=== PATIENT | female | born 1940 | race Caucasian/White ===

== ENCOUNTER 2018-01-22 15:05 | Outpatient (CLI) | payer MEDICARE, OTHER | END 2018-01-22 15:06 | disposition home or self-care (01) | LOC: BICMAMMO 15:05 | PROVIDERS: ATTEND Obstetrics & Gynecology | DX: Z12.31 Encounter for screening mammogram for malignant neoplasm of breast (principal) | CPT/HCPCS: 77063; 77067 ==

== ENCOUNTER 2019-06-18 14:21 | Outpatient (CLI) | payer MEDICARE, OTHER ==
--- NOTE | 2019-06-18 16:26 | MMO ---
Left Breast MAMMO Unilat Diag DDI LT+ARJUN. CLINICAL HISTORY: Patient is 78 years old and is seen for diagnostic exam. The patient has no family history of breast cancer. The patient has no personal history of cancer. VIEWS: The views performed were: left craniocaudal spot compression with tomosynthesis; left mediolateral oblique spot compression with tomosynthesis; and left mediolateral with tomosynthesis. FILMS COMPARED: The present examination has been compared to prior imaging studies performed at [facility] on 06/10/2019, and at [facility] on 12/07/2015, 01/12/2017 and 01/22/2018. This study has been interpreted with the assistance of computer-aided detection. MAMMOGRAM FINDINGS: A marker was placed at site of patient's prior loop recording device which has been removed. The focal asymmetry in the inner left breast corresponds to the site of the marker. 3-D Tomosynthesis images also show that this asymmetry is in the peripheral portion of the breast near the skin surface. This asymmetry is most compatible with area of scar. There are no suspicious masses, suspicious calcifications, or new areas of architectural distortion. IMPRESSION: THERE IS NO MAMMOGRAPHIC EVIDENCE OF MALIGNANCY. A ROUTINE FOLLOW-UP MAMMOGRAM IN 1 YEAR IS RECOMMENDED. THE RESULTS OF THIS EXAM WERE SENT TO THE PATIENT. ACR BI-RADS Category 2 - Benign finding MAMMOGRAPHY NOTE: 1. A negative mammogram report should not delay a biopsy if a dominant of clinically suspicious mass is present. 2. Approximately 10% to 15% of breast cancers are not detected by mammography. 3. Adenosis and dense breasts may obscure an underlying neoplasm. Reported by: NATHAN NOBLES MD Electonically Signed: [id number]
== END 2019-06-18 14:22 | disposition home or self-care (01) ==
LOC: BICMAMMO 14:21
PROVIDERS: ATTEND Obstetrics & Gynecology
DX: N63.20 Unspecified lump in the left breast, unspecified quadrant (principal)
CPT/HCPCS: 77065; G0279

== ENCOUNTER 2020-06-22 15:17 | Outpatient (CLI) | payer MEDICARE ==
--- NOTE | 2020-06-22 16:04 | MMO ---
Bilateral MAMMO Bilat Screen DDI+ARJUN. CLINICAL HISTORY: Patient is 79 years old and is seen for screening. The patient has no family history of breast cancer. The patient has no personal history of cancer. VIEWS: The views performed were: bilateral craniocaudal with tomosynthesis and bilateral mediolateral oblique with tomosynthesis. FILMS COMPARED: The present examination has been compared to prior imaging studies performed at [facility] on 06/10/2019, and at [facility] on 01/12/2017, 01/22/2018 and 06/18/2019. This study has been interpreted with the assistance of computer-aided detection. MAMMOGRAM FINDINGS: The breasts are heterogeneously dense, which could obscure a lesion on mammography. There are stable calcifications seen in both breasts. There are no suspicious masses, suspicious calcifications, or new areas of architectural distortion. IMPRESSION: THERE IS NO MAMMOGRAPHIC EVIDENCE OF MALIGNANCY. A ROUTINE FOLLOW-UP MAMMOGRAM IN 1 YEAR IS RECOMMENDED. THE RESULTS OF THIS EXAM WERE SENT TO THE PATIENT. ACR BI-RADS Category 2 - Benign finding MAMMOGRAPHY NOTE: 1. A negative mammogram report should not delay a biopsy if a dominant of clinically suspicious mass is present. 2. Approximately 10% to 15% of breast cancers are not detected by mammography. 3. Adenosis and dense breasts may obscure an underlying neoplasm. Reported by: DORY SANCHEZ MD Electonically Signed: [id number]
== END 2020-06-22 15:18 | disposition home or self-care (01) ==
LOC: BICMAMMO 15:17
PROVIDERS: ATTEND Obstetrics & Gynecology
DX: Z12.31 Encounter for screening mammogram for malignant neoplasm of breast (principal)
CPT/HCPCS: 77063; 77067

== ENCOUNTER 2022-11-16 13:19 | Outpatient (CLI) | payer MEDICARE ==
[2022-11-16 14:16] LABS: Hemoglobin 11.6 g/dL (12.0-15.5); Mean Corpuscular HGB CONC 32.7 g/dL (32.0-36.0); Mean Corpuscular Hemoglobin 28.6 pg (27.0-33.0); Mean Corpuscular Volume 87.4 fl (81.6-98.3); Mean Platelet Volume 10.3 fl (7.4-10.4); Platelet Count 267 10x3/uL (150-450); RBC Distribution Width 15.1 % (11.5-14.5); Red Blood Cell (RBC) Count 4.06 10x6/uL (3.90-5.03)
[2022-11-16 14:32] LABS: Anion Gap 14 mmol/L (10-20); BUN (Urea Nitrogen) 15 mg/dL (9.8-20.1); Calc. Creatinine Clearance 0 mL/min (70-130); Calcium 9.8 mg/dL (7.8-10.44); Carbon Dioxide 25 mmol/L (23-31); Chloride 103 mmol/L (98-107); Estimated GFR 65; Glucose 130 mg/dL (83-110); Potassium 4.2 mmol/L (3.5-5.1); Sodium 138 mmol/L (136-145)
== END 2022-11-16 13:20 | disposition home or self-care (01) ==
LOC: LABBT 13:19
PROVIDERS: ATTEND Neurological Surgery
DX: Z01.818 Encounter for other preprocedural examination (principal); M43.16 Spondylolisthesis, lumbar region
CPT/HCPCS: 80048; 85027; 93005; 93010

== ENCOUNTER 2022-11-21 09:04 | Observation (INO) | payer MEDICARE ==
[2022-11-16 13:51] VITALS: BMI 22.4
[2022-11-21] MEDS ORDERED: fentaNYL 50 mcg/mL 1 mL Vial ONE ×3 (12:16→15:02)
[2022-11-21] MEDS ORDERED: Thrombin 5000 UNITS/5 ML VIAL ONE (12:51)
[2022-11-21] MEDS ORDERED: Vancomycin 1 GM VIAL ONE (12:51)
[2022-11-21] MEDS ORDERED: Sodium Chloride 0.9% 100 ML ONE (13:04)
[2022-11-21] MEDS ORDERED: CEFAZOLIN 2 GM VIAL ONE (13:04)
[2022-11-21] MEDS ORDERED: Sevoflurane 250 ML INH ANEST BOTTLE ONE (13:10)
[2022-11-21] MEDS ORDERED: Lidocaine 1% PF 5 ML VIAL ONE (13:17)
[2022-11-21] MEDS ORDERED: NEOSTIGMINE 3 MG/3 ML SYR 3 MG/3 ML SYRINGE ONE (13:17)
[2022-11-21] MEDS ORDERED: Dexamethasone 20 MG/5 ML VIAL ONE (13:17)
[2022-11-21] MEDS ORDERED: Rocuronium Bromide 10 MG/ML (10ML VIAL) ONE (13:17)
[2022-11-21] MEDS ORDERED: Ketorolac Tromethamine 30 MG/ML VIAL ONE (13:17)
[2022-11-21] MEDS ORDERED: PROPOFOL 200 MG/20 ML VIAL ONE (13:17)
[2022-11-21] MEDS ORDERED: Glycopyrrolate 0.2 MG/ML 5 ML SYRINGE ONE (13:17)
[2022-11-21] MEDS ORDERED: Ondansetron PF 4 MG/2 ML Vial ONE (13:17)
[2022-11-21] MEDS ORDERED: Acetaminophen 325 MG TAB PO PRN (14:27)
[2022-11-21] MEDS ORDERED: diphenhydrAMINE 25 MG CAP PO PRN (14:27)
[2022-11-21] MEDS ORDERED: Cyclobenzaprine 10 MG TAB PO PRN (14:27)
[2022-11-21] MEDS ORDERED: traMADol HCl 50 MG TAB PO PRN (14:27)
[2022-11-21] MEDS ORDERED: HYDROcodone/Acetaminophen 7.5/325 mg Tablet PO PRN (14:27)
[2022-11-21] MEDS ORDERED: Milk Of Magnesia 30 ML UDCUP PO PRN (14:27)
[2022-11-21] MEDS ORDERED: Acetaminophen/Codeine 30-300mg Tablet PO PRN ×2 (14:27)
[2022-11-21] MEDS ORDERED: Mag-Al 1200 mg/1200 mg/30 ML UDCUP PO PRN (14:27)
[2022-11-21] MEDS ORDERED: Promethazine 25 MG TAB PO PRN (14:27)
[2022-11-21] MEDS ORDERED: Morphine 2 MG/ML VIAL SLOW IVP PRN (14:27)
[2022-11-21] MEDS ORDERED: Ondansetron PF 4 MG/2 ML Vial IVP PRN (14:27)
[2022-11-21] MEDS ORDERED: Ondansetron HCl/PF 4 MG/2 ML Vial IVP PRN (14:53)
[2022-11-21] MEDS ORDERED: Promethazine HCl 25 MG/ML VIAL IM PRN (14:53)
[2022-11-21] MEDS ORDERED: Gabapentin 100 MG CAP PO SCH (15:00)
[2022-11-21] MEDS: HYDROcodone/Acetaminophen 7.5/325 mg Tablet PO PRN ×2 (16:09→21:03)
[2022-11-21] MEDS: Sodium Chloride 0.9% 1,000 ML IV SCH ×2 (16:46→19:24)
[2022-11-21] MEDS ORDERED: Polyethylene Glycol 3350 17 GM Packet PO PRN (18:42)
[2022-11-21] MEDS ORDERED: Famotidine 20 MG TAB PO PRN (18:48)
[2022-11-21] MEDS: CEFAZOLIN 2 GM in Sodium Chloride 0.9% 100 ML IVPB SCH (19:28)
[2022-11-22] MEDS: HYDROcodone/Acetaminophen 7.5/325 mg Tablet PO PRN ×3 (03:50→14:34)
[2022-11-22] MEDS: CEFAZOLIN 2 GM in Sodium Chloride 0.9% 100 ML IVPB SCH (03:51)
[2022-11-22] MEDS ORDERED: Levothyroxine Sodium 88 MCG TAB PO SCH (06:00)
[2022-11-22] MEDS ORDERED: Escitalopram Oxalate 10 mg Tablet PO SCH (09:00)
[2022-11-22 12:28] VITALS: BP 104/67; TEMP 98.1
== END 2022-11-22 14:50 | disposition home health service (06) ==
LOC: SDC 09:04 → SURG A 14:33
PROVIDERS: ADMIT Neurological Surgery; ATTEND Neurological Surgery
PROC: 01NB0ZZ Release Lumbar Nerve, Open Approach (ICD-10-PCS; principal; 2022-11-21)
PROC: 0SB20ZZ Excision of Lumbar Vertebral Disc, Open Approach (ICD-10-PCS; 2022-11-21)
PROC: 0SG00J1 Fusion of Lumbar Vertebral Joint with Synthetic Substitute, Posterior Approach, Posterior Column, Open Approach (ICD-10-PCS; 2022-11-21)
DX: M48.061 Spinal stenosis, lumbar region without neurogenic claudication (principal); K21.9 Gastro-esophageal reflux disease without esophagitis; I10 Essential (primary) hypertension; E03.9 Hypothyroidism, unspecified; F41.9 Anxiety disorder, unspecified; E78.5 Hyperlipidemia, unspecified; M81.0 Age-related osteoporosis without current pathological fracture; Z79.891 Long term (current) use of opiate analgesic; Z79.899 Other long term (current) drug therapy; Z90.89 Acquired absence of other organs; Z88.6 Allergy status to analgesic agent
CPT/HCPCS: 20930; 22612; 63047; 63048; 97110; 97116; C1713 ×3; J3010; J1100; J1885; J2405; J2704; J3370; J3490